=== PATIENT | female | born 1965 | race Caucasian/White ===

== ENCOUNTER 2016-10-19 16:53 | Emergency (ER) | payer OTHER ==
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
[~2016-10-19 16:53] MED LIST: ACIPHEX20 MG PO; ALBUTEROL17 GM INH; ATORVASTATIN CA10 MG PO; BIRTH CONTROL PILL PO; GABAPENTIN300 M2 PO; GABAPENTIN600 MG PO; HYDROCODON-ACE1 EAC5 PO; KLONOPIN PO; KLONOPIN1 MG PO; LIORESAL10 MG PO; LORTAB 10-5001 EACH PO; NEXIUM PO; PANTOPRAZOLE SO40 MG PO; PRAVASTATIN SOD20 MG PO; SYNTHROID25 MCG PO; [UNRECOGNIZED DRUG - OTHER]
[2016-10-19] MEDS ORDERED: SYMBICORT80 INH (17:09)
== END 2016-10-19 18:47 | disposition home or self-care (01) ==
LOC: SED 16:53
DX: S69.91XA Unspecified injury of right wrist, hand and finger(s), initial encounter (principal); J45.909 Unspecified asthma, uncomplicated; F17.210 Nicotine dependence, cigarettes, uncomplicated; Y08.89XA Assault by other specified means, initial encounter; Y92.69 Other specified industrial and construction area as the place of occurrence of the external cause; Y99.0 Civilian activity done for income or pay
CPT/HCPCS: 29280; 73130; 99283